=== PATIENT | female | born 1975 | race Caucasian/White ===

== ENCOUNTER 2020-04-29 13:51 | Emergency (ER) | payer OTHER ==
[~2020-04-29] VITALS: Ht 172.7 cm; Wt 103.4 kg
== END 2020-04-29 15:09 | disposition home or self-care (01) ==
LOC: FSED 14:00
DX: S93.691A Other sprain of right foot, initial encounter (principal); I10 Essential (primary) hypertension; F90.9 Attention-deficit hyperactivity disorder, unspecified type; X50.1XXA Overexertion from prolonged static or awkward postures, initial encounter; Z86.19 Personal history of other infectious and parasitic diseases
CPT/HCPCS: 99283